=== PATIENT | male | born 1960 | race Caucasian/White ===

== ENCOUNTER 2022-03-27 18:03 | Emergency (ER) | payer OTHER, BC, SELFPAY ==
[2022-03-27 18:29] VITALS: BP 158/79; PULSE 54; RESP 18; TEMP 36.7; O2SAT 98; BMI 26.3
[2022-03-27 20:00] VITALS: BP 121/78; PULSE 78; RESP 18; TEMP 36.7; O2SAT 99
[2022-03-27 21:11] VITALS: BP 121/78; PULSE 78; RESP 18; TEMP 36.7
--- NOTE | 2022-05-10 11:53 | ED_ITS ---
DATE: 03/27/2022 CHIEF COMPLAINT Left leg redness. HISTORY OF PRESENT ILLNESS Claudio is a pleasant 61-year-old male who has hypertension, high cholesterol. ?He is nondiabetic. ?He scratched his leg at work and now it has been red around it. ?He has noticed some increased redness and a little bit of warmth about the size of a silver dollar in this area. ?There is a slight open wound about 3 x 2 cm. ?No pain in the leg. ?No swelling in the leg. ?No history of wound healing problems. 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 ?He is up to date on immunizations by his report. PAST HISTORY As above. ALLERGIES None. ? MEDICATIONS Atorvastatin, fluconazole, lisinopril. FAMILY HISTORY Negative for chronic illness. REVIEW OF SYSTEMS Negative for cardiopulmonary, GI, , neurologic, skin, other than as mentioned above. OBJECTIVE GENERAL: The patient is no apparent distress. VITAL SIGNS: Unremarkable. ?He has slightly elevated blood pressure, however. ?O2 sat is excellent. ?He is afebrile. ? LEFT LOWER EXTREMITY: His left anterior leg shows an open wound as mentioned about 4 cm x 2 cm that is just barely more like a skin avulsion with some cellulitic change about a silver dollar size around the wound. ?No ascending cellulitis or swelling in the leg. ASSESSMENT AND PLAN 61-year-old white male with a mild cellulitic change and skin avulsion on his left anterior daugherty. ?He can cover with bacitracin and bandage. ?We will give him Keflex 500 t.i.d. x7 days. ?He is up to date on immunizations by his report. Follow up with his regular doctor as needed. ?May work and be active but would observe this carefully, and if it gets worse, he should return.
== END 2022-03-27 20:15 | disposition home or self-care (01) ==
PROVIDERS: Emergency Provider Family Medicine; PCP Family Medicine
DX: S81.812A Laceration without foreign body, left lower leg, initial encounter (principal); L03.116 Cellulitis of left lower limb; Y99.0 Civilian activity done for income or pay
CPT/HCPCS: 99283

== ENCOUNTER 2024-01-15 20:02 | Emergency (ER) | payer OTHER, BC, SELFPAY ==
[2024-01-15 20:10] VITALS: BP 149/88; PULSE 110; RESP 18; TEMP 36.6; O2SAT 98; BMI 26.2
--- NOTE | 2024-01-15 20:19 | XR_ITS ---
Patient: SADIQ BOATENG Facility:?[facility] Patient ID:?[id number] Site Patient ID:?[id number] Site :?[id number] Study:?XRay-Extremity Right KNEE 3V-01/15/2024 8:37:26 PM Ordering Physician:MARLA Final Report: INDICATION: Right knee injury, occurred 01/01/2024. TECHNIQUE: Right knee 3 view. COMPARISON: None. FINDINGS: No acute fracture or dislocation. Mild narrowing of the medial and patellofemoral compartments. Mild tricompartmental spurring. Few small osseous loose bodies about the knee. Trace knee joint effusion. Soft tissues are unremarkable. IMPRESSION: 1. No acute findings. 2. Degenerative changes of the knee with trace joint effusion. Dictated by Lesley Melo MD @ 01/15/2024 9:17:38 PM Signed by:?Lesley Melo MD @01/15/2024 9:17:38 PM (Electronic Signature)
--- NOTE | 2024-01-15 20:21 | ED_ITS ---
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 He has had pain in the knee since then, whi ch he says he has been trying to rehab at home. He has a neoprene type brace he has been wearing, tried to go to work but says his knee was too sore so he does need a note for work. He says today when he was walking he felt like the knee was going to give out, he says he has ?nerve pain running along the top of the knee, and he has medial knee pain when he puts weight on the joint. He has not noted significant swelling, redness, no symptoms such as fever or other systemic complaints. Related Data Home Medications Medication Instructions Recorded Confirmed atorvastatin 10 mg tablet mg 03/27/22 fluticasone propionate 50 intranasal 03/27/22 mcg/actuation nasal spray,suspension lisinopril 10 mg tablet mg 03/27/22 Allergies Allergy/AdvReac Type Severity Reaction Status Date / Time No Known Drug Allergies Allergy Verified 03/27/22 18:32 [facility] Medical History (Updated 01/15/24 @ 21:17 by Minerva Lay MD) No significant past medical history Surgical History (Updated 03/27/22 @ 21:09 by Arturo Mckeon RN) No significant past surgical history Social History Smoking Status: Never smoker Do you use any of these nicotine containing products: None How often do you have a drink containing alcohol: never How often do you have six or more drinks on one occasion: Never AUDIT-C Alcohol total score: 0 Non-prescribed substance use: denies use Exam Narrative: Exam Narrative: Vital signs reviewed. Mild tachycardia. In general, an alert, nontoxic male. Looks comfortable. Extremities: Examination of the right lower extremity shows a neoprene knee brace in place. There is no effusion. He has full range of motion. Has a little tenderness along the medial joint line. There is no erythema or warmth. Const: Vital Signs, click to edit/add: Vital Signs - 24 hr 01/15/24 20:10 Temperature 97.8 F Pulse Rate [Pulse Oximeter] 110 H Respiratory Rate 18 Blood Pressure [Ri ght Upper Arm] 149/88 H Pulse Oximetry 98 Oxygen Delivery Me thod Room Air Documenting provider has reviewed patient's vital signs: yes Course Course ED Course: X-rays obtained of the right knee. Patient took Tylenol prior to coming in declines the need for anything else at this time for pain. No evidence of an infectious or inflammatory process. X-rays couple of loose bodies, degenerative changes, without significant effusion. I have reviewed this with the patient. I put him on light duty, would recommend orthopedic follow-up to see if additional imaging, injection, PT would be recommended. Return any time for worsening. Ibuprofen 400 mg 3 times daily with food for 1 week. Vital Signs Vital signs: Initial Vital Signs Temperature 97.8 F 01/15/24 20:10 Temperature Source Temporal Artery Scan 01/15/24 20:10 Pulse Rate 110 H 01/15/24 20:10 Respiratory Rate 18 01/15/24 20:10 Blood Pressure 149/88 H 01/15/24 20:10 Blood Pressure Mean 108 H 01/15/24 20:10 Pulse Oximetry 98 01/15/24 20:10 Oxygen Delivery Method Room Air 01/15/24 20:10 Vital Signs Temperature 97.8 F 01/15/24 20:10 Pulse Rate 110 H 01/15/24 20:10 Respiratory Rate 18 01/15/24 20:10 Blood Pressure 149/88 H 01/15/24 20:10 Pulse Oximetry 98 01/15/24 20:10 Oxygen Delivery Method Room Air 01/15/24 20:10 Temperature 97.8 F 01/15/24 20:10 Pulse Rate 110 H 01/15/24 20:10 Respiratory Rate 18 01/15/24 20:10 Blood Pressure 149/88 H 01/15/24 20:10 Pulse Oximetry 98 01/15/24 20:10 Oxygen Delivery Method Room Air 01/15/24 20:10 Discharge Plan Discharge Clinical Impression: Knee pain, right Patient Disposition: Home, Self-Care Condition: Stable Instructions: Knee Pain (ED) Additional Instructions: Recommend orthopedic follow-up in the next week for further evaluation. [phone] to schedule. Ibuprofen 400 mg 3 times daily with food for the next week. Consider supplement with chondroitin/glucosamine as well. For severe uncontrolled pain, redness, increased swelling, return to the emergency department. Prescriptions: No Action atorvastatin 10 mg tablet lisinopril 10 mg tablet fluticasone propionate 50 mcg/actuation spray,suspension INTRANASAL Patient Comments: INHALE 2 SPRAYS IN EACH NOSTRIL DAILY Follow Up/Referrals: Fabio Bess MD [Primary Care Provider] - Stand Alone Forms: [employer] Info Instructions
== END 2024-01-15 21:23 | disposition home or self-care (01) ==
PROVIDERS: Emergency Provider Emergency Medicine; PCP Family Medicine
DX: M25.561 Pain in right knee (principal)
CPT/HCPCS: 73562; 99283

== ENCOUNTER 2024-02-06 07:39 | Outpatient (CLI) | payer OTHER, SELFPAY ==
--- NOTE | 2024-02-06 08:15 | MR_ITS ---
[facility] [address] [facility] [address] Phone:?[phone] Fax:?[phone] Referring Physician Information: Oliver Guevara [address] [facility] [address] Phone:?[phone] Fax:?[phone] Patient:Misael Celestin D.O.B:?1960 Sex:?Male Phone:?[phone] [facility] MRN:?[id number] Exam Date:?02/06/2024 EXAM: MRI of the RIGHT KNEE, without contrast CLINICAL: Right knee pain. Evaluate for loose bodies and medial meniscal tear. COMPARISONS: X-rays including 01/22/2024. TECHNICAL: Multiplanar multisequence MRI of the right knee was obtained. SEDATION: None. CONTRAST: None. FINDINGS: Ligaments: ACL: Intact and unremarkable. PCL: Intact and unremarkable. MCL: Intact and unremarkable. LCL: Intact and unremarkable. Posterolateral corner: There is tendinosis and mild partial tearing of the popliteus tendon as seen on axial series 4 images 16-21. The distal biceps femoris, iliotibial band, and the popliteofibular ligament appear intact. Posteromedial corner: Semimembranosus, pes anserine tendons and posterior oblique ligament appear intact. Extensor mechanism: Patellar tendon: Intact, without tendinopathy. Quadriceps tendon: Intact, without tendinopathy. Retinacula: Medial and lateral retinacula are intact. Fat pads: Unremarkable infrapatellar Hoffa's, quadriceps and prefemoral fat pads. Patellofemoral joint: Patella: Full thickness chondral loss is seen to involve the medial patellar facet and patellar median ridge with deep chondral delamination involving the junction of the patellar median ridge with the lateral facet. Mild subchondral reactive marrow edema involving the patella. Trochlea: Grade 2-3 chondral thinning involves the medial trochlea. Medial compartment: Medial meniscus: There is mild horizontal undersurface tearing near the free edge of the posterior horn on sagittal series 6 image 23-25. No meniscal displacement. Medial cartilage: Small 2 mm chondral defect involving the anterior weightbearing medial femoral condyle as seen on coronal series 8 image 14. Grade 2-3 chondral loss also involves the weightbearing medial femoral condyle with mild underlying subchondral reactive marrow edema. Mild chondral thinning involving the medial tibial plateau. Lateral compartment: Lateral meniscus: Mild degenerative fraying involving the free edge of the body segment on coronal series 8 image 18. Lateral meniscus otherwise appears intact. No meniscal displacement. Lateral cartilage: Small segment of full-thickness chondral loss with adjacent deep chondral fissuring involving the posterior nonweightbearing lateral femoral condyle on axial series 4 images 12-13. Lateral tibial plateau cartilage is maintained. Knee joint: Effusion: Small right knee effusion. Intra-articular bodies:?Small 8 mm intra-articular body is seen along the superior aspect of the patella on axial series 4 image 4. Additional small body is present within the popliteal recess on coronal series 8 image 24. Popliteal cyst: None. Bones: No suspicious bone marrow signal alteration or fracture line. IMPRESSION: 1. Mild tearing of the posterior horn medial meniscus. Degenerative fraying involving the free edge of the body segment lateral meniscus, which is otherwise intact. 2. Tendinosis and mild partial tearing of the popliteus tendon. 3. Tricompartmental chondral loss as above. 4. Small joint effusion with a few small intra-articular bodies. CLIFFORD Electronically signed on 02/06/2024 12:07:00 PM by Ren Cooney D.O.
== END 2024-02-06 07:40 | disposition home or self-care (01) ==
LOC: MRI 07:41
PROVIDERS: PCP Family Medicine; Visit Provider Physician Assistant Surgical
DX: M25.561 Pain in right knee (principal); S83.241A Other tear of medial meniscus, current injury, right knee, initial encounter; M25.461 Effusion, right knee
CPT/HCPCS: 73721

== ENCOUNTER 2024-05-28 08:00 | Outpatient (RCR) | payer OTHER, SELFPAY | END 2024-07-29 10:04 | disposition home or self-care (01) | PROVIDERS: PCP Family Medicine; Visit Provider Physician Assistant Surgical | DX: M23.41 Loose body in knee, right knee (principal); Z51.89 Encounter for other specified aftercare | CPT/HCPCS: 97110; 97140; 97161 ==